=== PATIENT | male | born 1940 | race Caucasian/White ===

== ENCOUNTER 2019-10-27 14:15 | Emergency (ER) | payer MEDICARE, BC ==
[2019-10-27] MEDS ORDERED: Lidocaine 1% 20 ML MDV ONE (15:36)
[2019-10-27] MEDS ORDERED: cefTRIAXone\\ROCEPHIN 1 GM VIAL ONE (15:36)
[2019-10-27] MEDS ORDERED: Azithromycin 250 MG TAB ONE (15:36)
== END 2019-10-27 16:11 | disposition home or self-care (01) ==
LOC: MADERS 14:15
DX: L03.114 Cellulitis of left upper limb (principal); L04.2 Acute lymphadenitis of upper limb; I10 Essential (primary) hypertension; E78.5 Hyperlipidemia, unspecified; E78.00 Pure hypercholesterolemia, unspecified; Z79.899 Other long term (current) drug therapy; Z79.82 Long term (current) use of aspirin
CPT/HCPCS: 96372; 99283; J0696; J2001

== ENCOUNTER 2023-02-03 09:35 | Emergency (ER) | payer MEDICARE, BC | END 2023-02-03 10:32 | disposition home or self-care (01) | LOC: MADERS 09:35 | DX: J32.9 Chronic sinusitis, unspecified (principal); E78.5 Hyperlipidemia, unspecified; I10 Essential (primary) hypertension; E78.00 Pure hypercholesterolemia, unspecified | CPT/HCPCS: 71045 ==

== ENCOUNTER 2025-03-30 10:21 | Outpatient (CLI) | payer MEDICARE, BC ==
[2025-03-30 11:09] LABS: ALT (SGPT) 18 U/L (Less than 45); AST (SGOT) 21 U/L (11-34); Albumin 4.6 g/dL (3.1-4.5); Alkaline Phosphatase 65 U/L (40-110); Anion Gap 15 mmol/L (10-20); BUN (Urea Nitrogen) 21 mg/dL (8.4-25.7); Bilirubin, Total 1.1 mg/dL (0.3-1.2); Calc. Creatinine Clearance 0 mL/min (70-130); Calcium 9.4 mg/dL (7.8-10.44); Carbon Dioxide 23 mmol/L (23-31); Cardiac Risk 2.8 (Less than 4.5); Chloride 106 mmol/L (98-107); Cholesterol 98 mg/dl (< 200 Desired); Globulin 2.4 g/dL (2.4-3.5); Glucose 96 mg/dL (83-110); HDL Cholesterol 35 mg/dL (>60 Neg Risk); LDL Cholesterol, Calculated 43 mg/dL; Potassium 4.4 mmol/L (3.5-5.1); Sodium 140 mmol/L (136-145); Triglycerides 98 mg/dL (Less than 150)
[2025-03-30 11:24] LABS: Anisocytosis SLIGHT = 6-15 cells (100X) (0-5/hpf); Hematocrit 47.5 % (42.0-52.0); Hemoglobin 16.4 g/dL (14.0-18.0); MDiff Complete? YES; Mean Corpuscular Hemoglobin 31.7 pg (27.0-31.0); Mean Corpuscular Volume 92.2 fl (78.0-98.0); Platelet Adequacy Comment Appears Adequate; Platelet Count 196 10x3/uL (130-400); Red Blood Cell (RBC) Count 5.16 mill/uL (4.70-6.10); White Blood Cell (WBC) Count 6.0 10x3/uL (4.8-10.8)
== END 2025-03-30 10:22 | disposition home or self-care (01) ==
LOC: MADLAB 10:21
PROVIDERS: ATTEND Family Medicine
DX: Z00.00 Encounter for general adult medical examination without abnormal findings (principal); I25.118 Atherosclerotic heart disease of native coronary artery with other forms of angina pectoris
CPT/HCPCS: 36415; 80053; 80061; 85025